=== PATIENT | female | born 1950 | race Caucasian/White ===

== ENCOUNTER 2019-05-05 14:09 | Inpatient (IN) | payer MEDICARE ==
[~2019-05-05] VITALS: Ht 160 cm; Wt 71.6 kg
[2019-05-05] MEDS ORDERED: TAMS1CAP17 PO (14:19)
[2019-05-05] MEDS ORDERED: PROP80TA PO ×2 (14:19→19:13)
[2019-05-05] MEDS ORDERED: SUMA100T2 PO (14:19)
[2019-05-05] MEDS ORDERED: OXYC-517 PO (14:19)
[2019-05-05] MEDS ORDERED: ONDA4TAB6 PO (14:19)
[2019-05-05] MEDS ORDERED: OMEP-218 PO (14:19)
[2019-05-05] MEDS ORDERED: CIPR250T3 PO (14:19)
[2019-05-05] MEDS ORDERED: ASPI81TA85 PO (14:19)
[2019-05-05] MEDS ORDERED: ATOR1TAB19 PO (14:19)
[2019-05-05] MEDS ORDERED: AMLO2.5T3 PO (14:19)
[2019-05-05] MEDS ORDERED: FLUO20CA19 PO (14:19)
[2019-05-05] MEDS ORDERED: KETOROLAC 30 MG/ML VIAL (J1885) IV ONE (16:00)
[2019-05-05] MEDS ORDERED: NS 500 ML IV ONE (16:00)
[2019-05-05 16:24] LABS: BASO % 0.5 % (0.0-1.0); EOS # 0.1 10^3/uL (0.0-0.5); EOS % 0.9 % (0.0-3.0); HEMATOCRIT 33.9 % (36.0-47.0); HEMOGLOBIN 10.6 g/dl (12.0-15.5); LYMPH # 1.4 10^3/uL (1.5-5.0); LYMPH % 22.3 % (24.0-44.0); MEAN CORPUSCULAR HEMOGLOBIN 27.9 pg (27.0-33.0); MEAN CORPUSCULAR HGB CONC 31.3 g/dl (32.0-36.5); MEAN CORPUSCULAR VOLUME 89.2 fl (80.0-96.0); MONO # 0.7 10^3/uL (0.0-0.8); MONO % 10.1 % (0.0-5.0); NEUTROPHILS # 4.2 10^3/uL (1.5-8.5); NEUTROPHILS % 65.9 % (36.0-66.0); PLATELET COUNT, AUTOMATED 204 10^3/uL (150-450); WHITE BLOOD COUNT 6.4 10^3/uL (4.0-10.0)
[2019-05-05 16:43] LABS: BILIRUBIN,DIRECT 0.2 MG/DL (0.0-0.2); BILIRUBIN,TOTAL 0.6 MG/DL (0.2-1.0); CALCIUM LEVEL 9.1 MG/DL (8.8-10.2); CREATININE FOR GFR 1.42 MG/DL (0.55-1.30); GLOMERULAR FILTRATION RATE 38.9 (>39); POTASSIUM SERUM 3.9 MEQ/L (3.5-5.1)
[2019-05-05] MEDS ORDERED: MORPHINE 4 MG/ML 1ML VIAL/SYRINGE (J2270) IV ONE (17:15)
[2019-05-05] MEDS ORDERED: ONDANSETRON 4MG/2ML VIAL (J2405) IV ONE (17:15)
[2019-05-05] MEDS ORDERED: NS 1,000 ML IV SCH (18:45)
[2019-05-05] MEDS ORDERED: CYAN2500 PO (19:15)
[2019-05-05] MEDS ORDERED: VITA100T14 PO (19:15)
[2019-05-05] MEDS ORDERED: MORPHINE 4 MG/ML 1ML VIAL/SYRINGE (J2270) IV PRN (20:15)
[2019-05-05] MEDS ORDERED: ONDANSETRON 4MG/2ML VIAL (J2405) IV PRN (20:15)
--- NOTE | 2019-05-05 20:20 | HPEPDOC ---
[facility] Medical History & Physical Date of Admission May 05, 2019 Date of Service: May 05, 2019 Other Provider Lalo Ch [facility] Attending Physician: JOAN DEL VALLE MD History and Physical CHIEF COMPLAINT: back pain HISTORY OF PRESENT ILLNESS: Jenn Cox is a 69-year-old female with history of hypertension, GERD and history of multiple kidney stones presents from outside hospital with bilateral hydronephrosis, 5 mm stone in right ureter and 6.5 mm stone in the left ureter. She states she has had lower back and groin pain for the past 3 weeks. She tried home remedies including lemon water, cucumber water consumption, but was unable to pass the stone. She rates her pain as 8 /10 in severity at its worst. She denies any recent fevers, chills, nausea, vomiting or diarrhea. She denies any urinary symptoms including burning, urgency or hematuria. She has had multiple kidney stones in the past and has had 2 lithotripsies done in [place] where she used to live, her last stone measuring 9.5 mm. REVIEW OF SYSTEMS: CONSTITUTIONAL: Reports lower back and groin pain bilaterally HEENT: denies vision changes, no sinus problems, denies any trouble swallowing CARDIOVASCULAR: no palpitations RESPIRATORY: Denies any shortness of breath GENITOURINARY: No dysuria, no hematuria MUSCULOSKELETAL: Denies any joint/muscle pain GASTROINTESTINAL: Denies abdominal pain, no nausea/vomiting/diarrhea SKIN: No new rashes or lesions NEUROLOGICAL: No loss of sensation PSYCHIATRIC: Reports normal mood, no delusions or hallucinations ENDOCRINE: No hot/cold intolerance HEMATOLOGIC/LYMPHATIC: No easy bruising, no lumps/bumps ALLERGIC/IMMUNOLOGIC: No sinus symptoms PAST MEDICAL / SURGICAL HISTORY: Hypertension GERD History of TIAs History of multiple kidney stones status post lithotripsy x2 s/p Pyloroplasty s/p Appendectomy s/p Lithotripsy X2. s/p Cataract surgery SOCIAL HISTORY: Former smoker, quit 50 years ago. Occasional alcohol. FAMILY HISTORY: Brother with kidney stones ALLERGIES: Please see below. HOME MEDICATIONS: Please see below. PHYSICAL EXAMINATION: VITAL SIGNS: Please see below. GENERAL APPEARANCE: Laying in bed, appears stated age, no acute distress, calm, cooperative HEENT: EOMI, PERRLA, neck is supple with no thyromegaly or lymphadenopathy, patient has no teeth RESPIRATORY: Lungs are clear to auscultation bilaterally with no adventitious breath sounds appreciated CARDIOVASCULAR: no JVD, RRR, no murmurs/rubs/gallops ABDOMEN: Soft, nontender to palpation in all four quadrants, no masses/organomegaly, minimal CVA tenderness on the Right EXTREMITIES: no clubbing, cyanosis or edema noted NEUROLOGICAL: CN 2-12 intact, minimal weakness in left upper extremity compared to right upper extremity, otherwise no obvious focal deficits PSYCHIATRIC: normal mood/affect Skin: No rashes or ulcers. LN: No significant cervical or inguinal lymphadenopathy LABORATORY DATA: See below. IMAGING: CT abdomen pending read MICROBIOLOGY: Please see below. ASSESSMENT: This is a 69-year-old female with history of multiple kidney stones who presents with 3 weeks lower back and groin pain found to have bilateral hydronephrosis secondary to 5 mm stone in the right and 6.5 mm stone in the left ureter. She also has an BRENT secondary to obstruction. She will be admitted with plan for stent placement with Dr. Ureña tomorrow. PLAN: 1. Nephrolithiasis -plan for ureteral stent tomorrow: -Will start on IVF NS 150cc/hr -NPO for procedure in AM -Pain management with morphine, s/p Toradol in ED -pending UA and reflex culture. -Continue Flomax -Patient will need prophylactic antibiotics prior to procedure--will continue Ciprofloxacin which she had been on at home 2. BRENT -Cr found to be 1.42 with unknown baseline -Likely to improve with fluids -Avoiding nephrotoxic medications 3. Chronic HTN -BP WNL at this time -Continue home regimen of Amlodipine, Propanolol 4.GERD: -Continue Omeprazole 5. HLD: -Continue home Atorvastatin 4.History of CVA / multiple TIAs -per patient she may possibly have MS -she gets intermittent numbness,weakness in her upper extremities and is undergoing workup with her neurologist, Dr. Ortiz in [place], who most recently told patient she may not have MS but that she may be having several TIAs. She is currently asymptomatic. -Continue Aspirin 5.Mood disorder: -Continue home Fluoxetine DISPO:pending clinical course Vital Signs Vital Signs Date Time Temp Pulse Resp B/P (MAP) Pulse Ox O2 Delivery O2 Flow Rate FiO2 05/05/19 17:51 18 05/05/19 17:21 98.7 69 119/76 99 Room Air Laboratory Data Labs 24H Laboratory Tests 2 05/05/19 16:16: Immature Granulocyte % (Auto) 0.3, Neutrophils (%) (Auto) 65.9, Lymphocytes (%) (Auto) 22.3L, Monocytes (%) (Auto) 10.1H, Eosinophils (%) (Auto) 0.9, Basophils (%) (Auto) 0.5, Neutrophils # (Auto) 4.2, Lymphocytes # (Auto) 1.4L, Monocytes # (Auto) 0.7, Eosinophils # (Auto) 0.1, Basophils # (Auto) 0.0, Nucleated Red Blood Cells % (auto) 0.0, Anion Gap 6L, Glomerular Filtration Rate 38.9L, Calcium Level 9.1, Total Bilirubin 0.6, Direct Bilirubin 0.2, Aspartate Amino Tr ansf (AST/SGOT) 13, Alanine Aminotransferase (ALT/SGPT) 26, Alkaline Phosphatase 131H, Total Protein 6.0L, Albumin 3.0L, Albumin/Globulin Ratio 1.00, Lipase 42L CBC/BMP Laboratory Tests 05/05/19 16:16 Home Medications Scheduled Amlodipine Besylate (Amlodipine Besylate) 2.5 Mg Tablet, 2.5 MG PO DAILY Aspirin (Aspir 81) 81 Mg Tablet.dr, 81 MG PO QHS Atorvastatin Calcium (Atorvastatin Calcium) 10 Mg Tablet, 10 MG PO QHS Cyanocobalamin (Vitamin B-12) (Vitamin B-12) 2,500 Mcg Tab.subl, 2,500 MCG PO DAILY Fluoxetine Hcl (Fluoxetine HCl) 20 Mg Capsule, 20 MG PO QAM Omeprazole (Omeprazole) 20 Mg Capsule.dr, 20 MG PO QAM Propranolol HCl (Propranolol HCl) 80 Mg Tablet, 80 MG PO Q2D AT BEDTIME Propranolol HCl (Propranolol HCl) 80 Mg Tablet, 20 MG PO Q2D AT BEDTIME Pyridoxine HCl (Vitamin B6) (Vitamin B-6) 100 Mg Tablet, 100 MG PO DAILY Tamsulosin Hcl (Tamsulosin HCl) 0.4 Mg Capsule, 0.4 MG PO DAILY Scheduled PRN Ondansetron (Ondansetron Odt) 4 Mg Tab.rapdis, 4 MG PO Q6H PRN for nausea/vom iting Oxycodone HCl (Oxycodone HCl) 5 Mg Tablet, 5 MG PO Q6H PRN for pain Oxycodone/Acetaminophen (Oxycodone-Acetaminophen 5-325) 1 Each Tablet, 1 TAB PO Q4HP PRN for MODERATE/SEVERE PAIN (PS 5-10) Sumatriptan Succinate (Sumatriptan Succinate) 100 Mg Tablet, 100 MG PO BID PRN for MIGRAINE TAKE 2ND TABLET IN SYMPTOMS PERSIST AFTER 1 HOUR Allergies Coded Allergies: Penicillins (Verified Allergy, Severe, anaphylaxis, 05/05/19) nalbuphine (Verified Adverse Reaction, Intermediate, vomitng, 05/05/19) prochlorperazine (Verified Adverse Reaction, Intermediate, jittery, 05/05/19) GME ATTESTATION GME ATTESTATION My faculty preceptor for this patient encounter was physically present during the encounter and was fully available. All aspects of the patient interview, examination, medical decision making process, and medical care plan development were reviewed and approved by the faculty preceptor. The faculty preceptor is aware and concurs with the plan as stated in the body of this note and will attest to such by his/her cosignature. ATTENDING NOTE I examined at 745PM and discussed the case with and agree with the findings as documented above with the following changes: is a 69 yr old F w a PMH of multiple episodes of nephrolithiasis, Chronic HTN & TIAs who will be admitted for management of a left ureteral stone (7mm) and BRENT; she will be kept NPO after midnight for possible procedure in the morning. #Normocytic Normochromic Anemia - f/u pending retic #, iron studies w ferritin and stool occult the patient may need out pt GI referral JESUS GRAHAM MD May 05, 2019 20:20 JOAN DEL VALLE MD May 05, 2019 21:35
--- NOTE | 2019-05-05 20:51 | SMCUROLCON ---
Urology Consultation General Date of Consultation 05/05/19 Reason For Consultation This patient is seen for Killian; L Ureteral Calculus. History of Present Illness This is a 69 y/o F w/ a PMH significant for kidney stones (s/p several procedures previously in [place]), multiple TIAs, and HTN, presenting to the ER this evening for uncontrolled left flank pain and nausea due to an obstructing 8mm proximal left kidney stone. The patient notes that she went to an OSH ER this past weekend for acute onset left flank pain and nausea. A CT A/P was obtained there and was notable for the obstructing proximal left ureteral stone as well as small stones in each kidney. She was sent home w/ pain medications and was seen in the urology clinic today. Due to uncontrolled pain and nausea she was sent to the ER. She denies fevers or chills. She denies dysuria. She notes that her pain at this time is ok, but starting to come back. Past Medical History Medical History see HPI Surgical Hstory lithotripsy x2 Medications Current Medications Current Medications Medications (Trade) Dose Ordered Sig/Lux Route PRN Reason Start Time Stop Time Status Last Admin Dose Admin Amlodipine Besylate (Norvasc) 2.5 mg DAILY PO 05/06/19 09:00 Aspirin (Ecotrin) 81 mg QHS PO 05/05/19 21:00 Atorvastatin Calcium (Lipitor) 10 mg QHS PO 05/05/19 21:00 Ciprofloxacin (Cipro) 250 mg BID PO 05/05/19 21:00 Fluoxetine HCl (PROzac) 20 mg QAM PO 05/06/19 09:00 Home Med (Med Rec Complete!) ASDIRECTED XX 05/05/19 19:30 05/05/19 19:20 DC Morphine Sulfate (Morphine Sulfate Inj) 4 mg Q6HP PRN IV SEVERE PAIN (PS 8-10) 05/05/19 20:15 Omeprazole (PriLOSEC) 20 mg QAM PO 05/06/19 09:00 Ondansetron HCl (ZOFRAN INJection) 4 mg Q6H PRN IV NAUSEA 05/05/19 20:15 Propranolol HCl (Inderal) 20 mg Q2D@2100 PO 05/05/19 21:00 Propranolol HCl (Inderal) 80 mg Q2D@2100 PO 05/07/19 21:00 Sodium Chloride 1,000 ml @ 150 mls/hr Q6H40M IV 05/05/19 18:45 Tamsulosin HCl (Flomax) 0.4 mg DAILY PO 05/06/19 09:00 Allergies Allergies: Coded Allergies: Penicillins (Verified Allergy, Severe, anaphylaxis, 05/05/19) nalbuphine (Verified Adverse Reaction, Intermediate, vomitng, 05/05/19) prochlorperazine (Verified Adverse Reaction, Intermediate, jittery, 1 07/05/18) Review of Systems Constitutional: Denies: Fever, Chills, Sweats, Weakness, Malaise ENT: Denies: Head Aches, Sore Throat, Epistaxis Skin: Denies: Rash, Lesions, Breakdown, Nail Changes Pulmonary: Denies: Dyspnea, Cough Cardiovascular: Denies Chest Pain, Denies Palpitations Gastrointestinal: Reports: Nausea, Vomiting, Abdominal Pain (left lower kayleigh drant) Genitourinary: Denies: Dysuria, Frequency, Incontinence, Hematuria Musculoskeletal: Reports: Back Pain (left flank) Psych: Reports: Mood Normal Physical Examination General Exam: Alert, Cooperative, No Acute Distress Chest Exam: Clear to auscultation Heart Exam: Rate Normal, Regular Rhythm Abdomen Exam: Soft, Tenderness (mild LLQ tenderness) Skin Exam: Nl turgor and temperature Neuro Exam: Normal Speech Psych Exam: Mental status NL, Mood NL Vital Signs/I&O Vital Signs Date Time Temp Pulse Resp B/P (MAP) Pulse Ox O2 Delivery O2 Flow Rate FiO2 05/05/19 17:51 18 05/05/19 17:21 98.7 69 119/76 99 Room Air Laboratory Data 24H Labs Laboratory Tests 2 05/05/19 16:16: Immature Granulocyte % (Auto) 0.3, Neutrophils (%) (Auto) 65.9, Lymphocytes (%) (Auto) 22.3L, Monocytes (%) (Auto) 10.1H, Eosinophils (%) (Auto) 0.9, Basophils (%) (Auto) 0.5, Neutrophils # (Auto) 4.2, Lymphocytes # (Auto) 1.4L, Monocytes # (Auto) 0.7, Eosinophils # (Auto) 0.1, Basophils # (Auto) 0.0, Nucleated Red Blood Cells % (auto) 0.0, Anion Gap 6L, Glomerular Filtration Rate 38.9L, Calcium Level 9.1, Total Bilirubin 0.6, Direct Bilirubin 0.2, Aspartate Amino Transf (AST/SGOT) 13, Alanine Aminotransferase (ALT/SGPT) 26, Alkaline Phosphatase 131H, Total Protein 6.0L, Albumin 3.0L, Albumin/Globulin Ratio 1.00, Lipase 42L CBC/BMP Laboratory Tests 05/05/19 16:16 Assessment This is a 69 y/o F w/ intractable pain and nausea due to an 8mm obstructing proximal left ureteral stone. Plan - patient admitted to hospitalist service - will plan to take her to the OR tomorrow for cystoscopy, left ureteroscopy w/ laser lithotripsy, and left ureteral stent placement - please keep patient NPO after midnight JEREMY RICKS MD May 05, 2019 20:50
[2019-05-05] MEDS ORDERED: ATORVASTATIN 10 MG TAB PO SCH (21:00)
[2019-05-05] MEDS ORDERED: PROPRANOLOL 20 MG TAB PO SCH (21:00)
[2019-05-05] MEDS ORDERED: ASPIRIN 81 MG ENTERIC TAB PO SCH (21:00)
[2019-05-05 22:19] LABS: PERCENT SATURATION 14.2 % (13.2-45.0)
[2019-05-05 22:45] VITALS: BP_SYST 128; BP_SYST 141; BP_DIAS 66; BP_DIAS 73
[2019-05-05] MEDS: NS 1,000 ML IV SCH (22:57)
[2019-05-05] MEDS: CIPROFLOXACIN 250 MG TAB PO SCH (23:04)
[2019-05-06] VITALS (7 sets, daily range): BP systolic 117–128; BP diastolic 59–74
[2019-05-06 06:45] LABS: HEMATOCRIT 29.1 % (36.0-47.0); HEMOGLOBIN 9.3 g/dl (12.0-15.5); MEAN CORPUSCULAR HEMOGLOBIN 28.4 pg (27.0-33.0); PLATELET COUNT, AUTOMATED 177 10^3/uL (150-450); RED BLOOD COUNT 3.27 10^6/uL (4.00-5.40); WHITE BLOOD COUNT 5.8 10^3/uL (4.0-10.0)
[2019-05-06 07:04] LABS: CALCIUM LEVEL 8.4 MG/DL (8.8-10.2); CREATININE FOR GFR 1.16 MG/DL (0.55-1.30); GLOMERULAR FILTRATION RATE 49.2 (>39); POTASSIUM SERUM 3.9 MEQ/L (3.5-5.1)
[2019-05-06] MEDS ORDERED: OMEPRAZOLE 20 MG CAP PO SCH (09:00)
[2019-05-06] MEDS ORDERED: TAMSULOSIN 0.4 MG CAP PO SCH (09:00)
[2019-05-06] MEDS ORDERED: FLUoxetine 20 MG CAP PO SCH (09:00)
[2019-05-06] MEDS: NS 1,000 ML IV SCH (09:01)
[2019-05-06] MEDS: CIPROFLOXACIN 250 MG TAB PO SCH (09:02)
--- NOTE | 2019-05-06 10:05 | IPNPDOC ---
Subjective Date Seen The patient was seen on 05/06/19. Subjective Chief Complaint/HPI Patient is comfortable. No more pain. Awaiting cystoscopy General: Denies: ROS Unobtainable, Chills, Night Sweats, Fatigue, Malaise, Normal Appetite, Other Symptoms Pulmonary: Denies: Dyspnea, Cough, Pleuritic Chest Pain, Other Symptoms Cardiovascular: Denies: Chest Pain, Palpitations, Orthopnea, Paroxysmal Noc. Dyspnea, Edema, Lt Headedness, Other Symptoms Gastrointestinal: Denies: Nausea, Vomiting, Abdominal Pain, Diarrhea, Constipation, Melena, Hematochezia, Other Symptoms Musculoskeletal: Denies: Neck Pain, Back Pain, Shoulder Pain, Arm Pain, Hand Pain, Leg Pain, Foot Pain, Joint Pain, Muscle Pain, Spasms, Other Symptoms Neurological: Denies: Weakness, Numbness, Incoordination, Change in speech, Confusion, Seizures, Other Symptoms Objective Physical Examination Eye Exam: Positive: PERRLA, Conjunctiva & lids normal ENT Exam: Positive: Atraumatic, Mucous membr. moist/pink Neck Exam: Positive: Supple Chest Exam: Positive: Clear to auscultation, Normal air movement Heart Exam: Positive: Rate Normal, Normal S1, Normal S2 Abdomen Exam: Positive: Normal bowel sounds, Soft Extremity Exam: Positive: Normal pulses Skin Exam: Positive: Nl turgor and temperature Neuro Exam: Positive: Strength at 5/5 X4 ext, Sensation Intact Assessment /Plan Problems (1) Left ureteral calculus Status: Acute Problem Text: Patient was seen by Dr. Ureña Scheduled for cystoscopy with left ureteroscopic and lithotripsy with stent placement for left ureter calculus Pain management as per orders IV fluids Further, as per urology (2) BRENT (acute kidney injury) Problem Text: Baseline BUN/creatinine not available , Most likely secondary to postop obstruction Monitor BUN/creatinine (3) HTN (hypertension) Status: Chronic Problem Text: Continue home meds. Patient is taking her by mouth meds Plan/VTE VTE Prophylaxis Ordered?: Yes VS, I&O, 24H, Fishbone Vital Signs/I&O Vital Signs Date Time Temp Pulse Resp B/P (MAP) Pulse Ox O2 Delivery O2 Flow Rate FiO2 05/06/19 09:02 80 128/72 05/06/19 04:00 97.6 18 95 Room Air I&O- Last 24 Hours up to 6 AM 05/06/19 05:59 Intake Total 990 ml Output Total 200 ml Balance 790 ml Laboratory Data 24H LABS Laboratory Tests 2 05/05/19 16:16: Immature Granulocyte % (Auto) 0.3, Neutrophils (%) (Auto) 65.9, Lymphocytes (%) (Auto) 22.3L, Monocytes (%) (Auto) 10.1H, Eosinophils (%) (Auto) 0.9, Basophils (%) (Auto) 0.5, Neutrophils # (Auto) 4.2, Lymphocytes # (Auto) 1.4L, Monocytes # (Auto) 0.7, Eosinophils # (Auto) 0.1, Basophils # (Auto) 0.0, Reticulocyte # (auto) 46.1, Nucleated Red Blood Cells % (auto) 0.0, Percent Reticulocyte Count 1.3, Reticulocyte Hemoglobin Equivalent 33.4, Anion Gap 6L, Glomerular Filtration Rate 38.9L, Calcium Level 9.1, Iron Level 47L, Total Iron Binding Capacity 332, Transferrin % Saturation 14.2, Ferritin 18, Total Bilirubin 0.6, Direct Bilirubin 0.2, Aspartate Amino Transf (AST/SGOT) 13, Alanine Aminot ransferase (ALT/SGPT) 26, Alkaline Phosphatase 131H, Total Protein 6.0L, Albumin 3.0L, Albumin/Globulin Ratio 1.00, Lipase 42L 05/05/19 22:26: Urine Color YELLOW, Urine Appearance CLEAR, Urine pH 6.0, Urine Specific [place] 1.017, Urine Protein NEGATIVE, Urine Glucose (UA) NEGATIVE, Urine Ketones 1+H, Urine Blood 2+H, Urine Nitrite NEGATIVE, Urine Bilirubin NEGATIVE, Urine Uro bilinogen 0.2, Urine Leukocyte Esterase 1+H, Urine WBC (Auto) 7H, Urine RBC (Auto) 51H, Urine Hyaline Casts (Auto) 2, Urine Bacteria (Auto) NEGATIVE, Urine Squamous Epithelial Cells 0, Urine Mucus (Auto) SMALL, Urine Sperm (Auto) 05/06/19 06:31: Nucleated Red Blood Cells % (auto) 0.0, Anion Gap 4L, Glomerular Filtration Rate 49.2, Calcium Level 8.4L CBC/BMP Laboratory Tests 05/05/19 16:16 05/06/19 06:31 Microbiology Microbiology 05/05/19 Urine Culture, Received Pending JAM WINKLER MD May 06, 2019 10:05
[2019-05-06] MEDS ORDERED: LevoFLOXacin IV 500 MG in IV 1 EA IV ONE (12:00)
--- NOTE | 2019-05-06 12:46 | IPNPDOC ---
Subjective Review oF Systems Chief Complaint The patient is a 69-year-old female admitted with a reason for visit of Killian; L Ureteral Calculus. Events since Last Encounter No acute events o/n. Still having nausea and persistent left flank pain. No f/c/ns. Objective Physical Examination Chest Exam: Clear to auscultation Heart Exam: Positive: Rate Normal ABDOMEN EXAM: Soft Skin Exam: Nl turgor and temperature Neuro Exam: Normal Speech Psych Exam: Mental status NL, Mood NL Other physical findings left CVAT Vital Signs/I&O Vital Signs Date Time Temp Pulse Resp B/P (MAP) Pulse Ox O2 Delivery O2 Flow Rate FiO2 05/06/19 09:02 80 128/72 05/06/19 04:00 97.6 18 95 Room Air I&O- Last 24 Hours up to 6 AM 05/06/19 06:00 Intake Total 990 ml Output Total 200 ml Balance 790 ml Laboratory Data Labs 24H Laboratory Tests 2 05/05/19 16:16: Immature Granulocyte % (Auto) 0.3, Neutrophils (%) (Auto) 65.9, Lymphocytes (%) (Auto) 22.3L, Monocytes (%) (Auto) 10.1H, Eosinophils (%) (Auto) 0.9, Basophils (%) (Auto) 0.5, Neutrophils # (Auto) 4.2, Lymphocytes # (Auto) 1.4L, Monocytes # (Auto) 0.7, Eosinophils # (Auto) 0.1, Basophils # (Auto) 0.0, Reticulocyte # (auto) 46.1, Nucleated Red Blood Cells % (auto) 0.0, Percent Reticulocyte Count 1.3, Reticulocyte Hemoglobin Equivalent 33.4, Anion Gap 6L, Glomerular Filtration Rate 38.9L, Calcium Level 9.1, Iron Level 47L, Total Iron Binding Capacity 332, Transferrin % Saturation 14.2, Ferritin 18, Total Bilirubin 0.6, Direct Bilirubin 0.2, Aspartate Amino Transf (AST/SGOT) 13, Alanine Aminotransferase (ALT/SGPT) 26, Alkaline Phosphatase 131H, Total Protein 6.0L, Albumin 3.0L, Albumin/Globulin Ratio 1.00, Lipase 42L 05/05/19 22:26: Urine Color YELLOW, Urine Appearance CLEAR, Urine pH 6.0, Urine Specific [place] 1.017, Urine Protein NEGATIVE, Urine Glucose (UA) NEGATIVE, Urine Ketones 1+H, Urine Blood 2+H, Urine Nitrite NEGATIVE, Urine Bilirubin NEGATIVE, Urine Urobilinogen 0.2, Urine Leukocyte Esterase 1+H, Urine WBC (Auto) 7H, Urine RBC (Auto) 51H, Urine Hyaline Casts (Auto) 2, Urine Bacteria (Auto) NEGATIVE, Urine Squamous Epithelial Cells 0, Urine Mucus (Auto) SMALL, Urine Sperm (Auto) 05/06/19 06:31: Nucleated Red Blood Cells % (auto) 0.0, Anion Gap 4L, Glomerular Filtration Rate 49.2, Calcium Level 8.4L CBC/BMP Laboratory Tests 05/05/19 16:16 05/06/19 06:31 Microbiology Microbiology 05/05/19 Urine Culture, Received Pending Assessment/Plan Date Seen The patient was seen on 05/06/19. Patient Summary This is a 69 y/o F w/ intractable pain and nausea due to an 8mm obstructing pr oximal left ureteral stone. I recommended that we take her to the OR today for cystoscopy, left ureteroscopy w/ laser lithotripsy, and left ureteral stent placement. After a discussion of the risks and benefits, informed consent was signed. Problems (1) Left ureteral calculus Status: Acute (2) KILLIAN (acute kidney injury) (3) HTN (hypertension) Status: Chronic Plan/VTE VTE Prophylaxis Ordered?: Yes Plan - to OR now - NPO - patient may resume regular diet postop and can be discharged home if her pain is better when she is back on the RNF JEREMY RICKS MD May 06, 2019 12:46
[2019-05-06] MEDS ORDERED: CONRAY-60 60% 50ML VIAL (Q9961) As Ordered ONE (14:09)
[2019-05-06] MEDS ORDERED: LR 1,000 ML IV SCH (14:30)
[2019-05-06] MEDS ORDERED: fentaNYL 100 MCG/2 ML INJECTION (J3010) IV PRN (14:30)
[2019-05-06] MEDS ORDERED: ONDANSETRON 4MG/2ML VIAL (J2405) IV PRN (14:30)
[2019-05-06] MEDS ORDERED: PERCOCET 5MG/325MG TAB PO PRN ×2 (14:30→14:45)
--- NOTE | 2019-05-06 14:39 | RO ---
DATE OF PROCEDURE: 05/06/2019 PREPROCEDURE DIAGNOSIS: Left ureteral stone. POSTPROCEDURE DIAGNOSIS: Left ureteral stone. PROCEDURE: Cystoscopy, left ureteroscopy with laser lithotripsy and basket extraction of stones, left retrograde pyelogram with intraoperative interpretation of images, left ureteral stent placement. SURGEON: Dr. Max Ureña HARDWARE DESIGNER: None. ANESTHESIA: General. OPERATIVE INDICATIONS: This is a 69-year-old female who was found to have an obstructing 8 mm proximal left ureteral stone. Due to intractable pain, she was brought to the operating room today for treatment. DESCRIPTION OF PROCEDURE: The patient was brought to the operating room, where general anesthesia was induced. Prophylactic antibiotics were infused. She was then placed in the dorsal lithotomy position and prepped and draped in the usual sterile fashion. A rigid cystoscope was then inserted into the urethral meatus and advanced into the bladder. Once inside the bladder, guidewire was advanced up the left collecting system. I then advanced a ureteral access sheath up the left collecting system. I went up the access sheath with a flexible ureteroscope. While advancing the scope up, it pushed the stone in the renal pelvis. The 8 mm stone was then fragmented into smaller pieces using 272 micron laser fiber. All the fragments were then removed using a basket. Once I was satisfied all the fragments were removed, retrograde pyelogram was performed and was notable for mild to moderate hydronephrosis with no extravasation. I then withdrew the uteroscope along with access sheath and no additional stones were seen within the ureter. I then utilized the wire to advance a #6-Upper Sorbian x 22-32 cm JJ ureteral stent up the left collecting system. The wire was then removed, and there were adequate curls of the stent in the left renal pelvis and in the bladder. The bladder was then emptied of all fluid, and this marked the conclusion of the procedure. The patient was then taken out of the dorsal lithotomy position, awakened from anesthesia, and transported to the recovery room in stable condition. ESTIMATED BLOOD LOSS: 5 mL. COMPLICATIONS: None. SPECIMENS: Kidney stone fragments. PLAN: The patient will followup in the clinic in a few weeks for stent removal. MARIAH
[2019-05-06] MEDS ORDERED: ACETAMINOPHEN TAB 650MG DOSE (2X325MG) PO PRN (14:45)
[2019-05-06] MEDS ORDERED: PERCOCET PO (17:55)
--- NOTE | 2019-05-06 18:05 | DS.PDOC ---
Discharge Summary General Date of Admission May 05, 2019 at 19:04 Date of Discharge 05/06/19 Discharge Summary PROCEDURES PERFORMED DURING STAY: None. ADMITTING DIAGNOSES: 1. Left ureter calculus. DISCHARGE DIAGNOSES: 1. Left ureter calculus, hypertension COMPLICATIONS/CHIEF COMPLAINT: [place]; L Ureteral Calculus. HISTORY OF PRESENT ILLNESS: Jenn Cox is a 69-year-old female with history of hypertension, GERD and history of multiple kidney stones presents from outside hospital with bilateral hydronephrosis, 5 mm stone in right ureter and 6.5 mm stone in the left ureter. She states she has had lower back and groin pain for the past 3 weeks. She tried home remedies including lemon water, cucumber water consumption, but was unable to pass the stone. She rates her pain as 8 out of 10 at its worst. She denies any recent fevers, chills, nausea, vomiting or diarrhea. She denies any urinary symptoms including burning, urgency or hematuria. She has had multiple kidney stones in the past and has had 2 lithotripsies done in [place] where she used to live, her last stone measuring 9.5 mm.. HOSPITAL COURSE: Patient was admitted to medical floor. . Patient was kept nothing by mouth, started on IV fluids. She was seen by Dr. Ureña from urology, patient was taken to or for which she had a cystoscopy with ureteroscopy, lithotripsy and a stent placed in left ureter. Patient is clinically stable, tolerated oral feeding very well and pain has resolved and was cleared by Dr. Ureña for discharge. Patient will be discharged home. She will follow with Dr. Ureña as an outpatient in one week. The all home meds.. DISCHARGE MEDICATIONS: Please see below. ALLERGIES: Please see below. PHYSICAL EXAMINATION ON DISCHARGE: VITAL SIGNS: Please see below. GENERAL: Within normal limits HEENT: PERRLA. Extraocular muscles intact NECK: Supple CARDIOVASCULAR EXAMINATION: S1, S2, regular RESPIRATORY EXAMINATION: Clear to A&P ABDOMINAL EXAMINATION: , Soft, nontender, bowel sounds present. No organomegaly EXTREMITIES: No clubbing, cyanosis, edema SKIN: Normal NEUROLOGICAL EXAMINATION: . No focal motor sensory deficit PSYCHIATRIC EXAMINATION: Normal LABORATORY DATA: Please see below. IMAGING: CT showed evidence of 8 mm stone PROGNOSIS: Good ACTIVITY: As tolerated. DIET: Regular DISCHARGE PLAN: As per discharge plan follow-up with Dr. Ureña in one week. DISPOSITION: . Home DISCHARGE INSTRUCTIONS: 1. As per discharge instructions. ITEMS TO FOLLOWUP ON ON OUTPATIENT: 1. Follow with Dr. Ureña as an outpatient. DISCHARGE CONDITION: Stable. TIME SPENT ON DISCHARGE: 35 minutes. Vital Signs/I&Os Vital Signs Date Time Temp Pulse Resp B/P (MAP) Pulse Ox O2 Delivery O2 Flow Rate FiO2 05/06/19 17:45 97.8 83 16 118/64 (82) 94 Room Air I&O- Last 24 Hours up to 6 AM 05/06/19 06:00 Intake Total 990 ml Output Total 200 ml Balance 790 ml Laboratory Data Labs 24H Laboratory Tests 2 05/05/19 22:26: Urine Color YELLOW, Urine Appearance CLEAR, Urine pH 6.0, Urine Specific [place] 1.017, Urine Protein NEGATIVE, Urine Glucose (UA) NEGATIVE, Urine Ketones 1+H, Urine Blood 2+H, Urine Nitrite NEGATIVE, Urine Bilirubin NEGATIVE, Urine Ur obilinogen 0.2, Urine Leukocyte Esterase 1+H, Urine WBC (Auto) 7H, Urine RBC (Auto) 51H, Urine Hyaline Casts (Auto) 2, Urine Bacteria (Auto) NEGATIVE, Urine Squamous Epithelial Cells 0, Urine Mucus (Auto) SMALL, Urine Sperm (Auto) 05/06/19 06:31: Nucleated Red Blood Cells % (auto) 0.0, Anion Gap 4L, Glomerular Filtration Rate 49.2, Calcium Level 8.4L CBC/BMP Laboratory Tests 05/06/19 06:31 Microbiology Microbiology 05/05/19 Urine Culture, Received Pending Discharge Medications Scheduled Amlodipine Besylate (Amlodipine Besylate) 2.5 Mg Tablet, 2.5 MG PO DAILY, (Reported) Aspirin (Aspir 81) 81 Mg Tablet.dr, 81 MG PO QHS, (Reported) Atorvastatin Calcium (Atorvastatin Calcium) 10 Mg Tablet, 10 MG PO QHS, (Reported) Cyanocobalamin (Vitamin B-12) (Vitamin B-12) 2,500 Mcg Tab.subl, 2,500 MCG PO DAILY, (Reported) Fluoxetine Hcl (Fluoxetine HCl) 20 Mg Capsule, 20 MG PO QAM, (Reported) Omeprazole (Omeprazole) 20 Mg Capsule.dr, 20 MG PO QAM, (Reported) Propranolol HCl (Propranolol HCl) 80 Mg Tablet, 80 MG PO Q2D, (Reported) AT BEDTIME Propranolol HCl (Propranolol HCl) 80 Mg Tablet, 20 MG PO Q2D, (Reported) AT BEDTIME Pyridoxine HCl (Vitamin B6) (Vitamin B-6) 100 Mg Tablet, 100 MG PO DAILY, (Reported) Tamsulosin Hcl (Tamsulosin HCl) 0.4 Mg Capsule, 0.4 MG PO DAILY, (Reported) Scheduled PRN Ondansetron (Ondansetron Odt) 4 Mg Tab.rapdis, 4 MG PO Q6H PRN for nausea/vomiting, (Reported) Oxycodone HCl (Oxycodone HCl) 5 Mg Tablet, 5 MG PO Q6H PRN for pain, (Reported) Oxycodone/Acetaminophen (Oxycodone-Acetaminophen 5-325) 1 Each Tablet, 1 TAB PO Q4HP PRN for MODERATE/SEVERE PAIN (PS 5-10) Sumatriptan Succinate (Sumatriptan Succinate) 100 Mg Tablet, 100 MG PO BID PRN for MIGRAINE, (Reported) TAKE 2ND TABLET IN SYMPTOMS PERSIST AFTER 1 HOUR Allergies Coded Allergies: Penicillins (Verified Allergy, Severe, anaphylaxis, 05/05/19) nalbuphine (Verified Adverse Reaction, Intermediate, vomitng, 05/05/19) prochlorperazine (Verified Adverse Reaction, Intermediate, jittery, 05/05/19) JAM WINKLER MD May 06, 2019 18:05
[2019-05-07] MEDS ORDERED: PROPRANOLOL 20 MG TAB PO SCH (21:00)
== END 2019-05-06 19:00 | disposition home or self-care (01) | DRG 661 ==
LOC: M ED 14:09 → M ED INP 19:04 → M MS4PR 22:40
PROVIDERS: ADMIT Internal Medicine; ATTEND Internal Medicine
PROC: 0TC78ZZ Extirpation of Matter from Left Ureter, Via Natural or Artificial Opening Endoscopic (ICD-10-PCS; 2019-05-06)
PROC: 0T778DZ Dilation of Left Ureter with Intraluminal Device, Via Natural or Artificial Opening Endoscopic (ICD-10-PCS; principal; 2019-05-06 11:08)
DX: N13.2 Hydronephrosis with renal and ureteral calculous obstruction (principal); N17.9 Acute kidney failure, unspecified; I10 Essential (primary) hypertension; K21.9 Gastro-esophageal reflux disease without esophagitis; Z79.82 Long term (current) use of aspirin; Z79.899 Other long term (current) drug therapy; Z88.0 Allergy status to penicillin; Z88.8 Allergy status to other drugs, medicaments and biological substances

== ENCOUNTER → 2019-08-23 | Outpatient (CLI) | payer MEDICARE ==
[~2019-08-23] MED LIST: AMLO2.5T3 PO; ASPI81TA85 PO; ATOR1TAB19 PO; CIPR250T3 PO; CYAN2500 PO; FLUO20CA22 PO; OMEP-218 PO; ONDA4TAB6 PO; OXYC-517 PO; PERCOCET PO; PROP80TA PO; SUMA100T2 PO; TAMS1CAP17 PO; VITA100T14 PO
--- NOTE | 2019-08-23 13:16 | REPPI ---
KUB ABDOMEN/PELVIS: KUB film of abdomen/pelvis is performed. There is no evidence of bowel obstruction. Calcific density to the right of the L3 vertebral body measures approximately 6 mm in diameter and may represent a ureteral calculus. There appear to be small phleboliths on both sides of the pelvis. There are degenerative changes of the spine. IMPRESSION: Possible right ureteral calculus to the right of the L3 vertebral body. Electronically Signed by Rodolfo Duenas MD 08/23/2019 04:00 P
== END ==
LOC: M PLAIMG 11:09
PROVIDERS: ATTEND Urology
DX: N13.2 Hydronephrosis with renal and ureteral calculous obstruction (principal)
CPT/HCPCS: 74018; G0463